=== PATIENT | male | born 1990 | race Caucasian/White ===

== ENCOUNTER 2017-08-10 10:22 | Emergency (ER) | payer MEDICAID ==
[2017-08-10 10:27] VITALS: TEMP 98.4
[2017-08-10] MEDS ORDERED: IBUPROFEN 200 MG TAB PO ONE (10:51)
--- NOTE | 2017-08-10 11:06 | EDPHY ---
H & P Stated Complaint: R ankle injury last night Time Seen by Provider: 08/10/17 11:01 HPI/ROS: HPI: This is a 27-year-old male who presents with Chief Complaint: Right ankle injury Location: Right ankle Quality: Injury Duration: Yesterday afternoon Signs and Symptoms: No bleeding, no radiation, no numbness, no weakness, no tingling, + decreased range of motion, + swelling medial aspect Timing: gradual onset Severity: [id number]-[id number] Context: Patient reports that he was skateboarding yesterday, jumped, fell off a skateboard and landed directly on the heel of his right foot. He is unsure of exactly how he hurt his right ankle but he felt immediate pain but was still able to ambulate. He woke up this morning with his right ankle swelling and increased pain with weight-bearing. Modifying Factors: ice applied Comment: ROS: Constitutional: No fever, no chills, no weight loss Eyes: No blurred vision Respiratory: No shortness of breath, no cough Cardiovascular: No chest pain Gastrointestinal: No nausea, no vomiting no diarrhea Genitourinary: No dysuria Extremities: No myalgias Neurologic: No weakness, no numbness Skin: No rashes Hematologic: No bruising, no bleeding MEDICAL/SURGICAL/SOCIAL HISTORY: Generally healthy. Reports injury to his Achilles several years ago that did not require surgical intervention. Source: Patient Exam Limitations: No limitations - Personal History Current Tetanus/Diphtheria Vaccine: Yes Current Tetanus Diphtheria and Acellular Pertussis (TDAP): Yes - Medical/Surgical History Hx Asthma: No Hx Chronic Respiratory Disease: No Hx Diabetes: No Hx Cardiac Disease: No Hx Renal Disease: No Hx Cirrhosis: No Hx Alcoholism: No Hx HIV/AIDS: No Hx Splenectomy or Spleen Trauma: No Other PMH: pmh- Bipolar. chronic opiate and benzo abuse- w/d seizures - Social History Smoking Status: Never smoked - Physical Exam Exam: CONSTITUTIONAL: Well-appearing adult white male, awake and alert, no obvious distress HEENT: Atraumatic and normocephalic, PERRL, EOMI. Tympanic membranes clear. . Oropharynx clear, no exudate and moist pink mucosa. Airway patent. No lymphadenopathy. No meningismus. Cardiovascular: Normal S1/S2, regular rate, regular rhythm, without murmur rub or gallop. PULMONARY/CHEST: Symmetrical and nontender. Clear to auscultation bilaterally Good air movement. No accessory muscle usage. ABDOMEN: Soft, nondistended, nontender, no rebound, no guarding, no peritoneal signs, no masses or organomegaly. No CVAT. EXTREMITIES: 2/2 pedal pulses, right medial lateral fsyr-[id number] swelling; tenderness to palpation over anterior and posterior aspect of ligaments. Dorsiflexion and plantar flexion intact limited due to pain. Light touch sensation intact. Foot inversion and eversion limited due to pain. NEUROLOGICAL: no focal neuro deficits. GCS 15. Light touch sensation intact. Normal Yi test. SKIN: Warm and dry, no erythema. no rash. Good capillary refill. Constitutional: Initial Vital Signs Temperature (C) 36.9 C 08/10/17 10:25 Heart Rate 90 08/10/17 10:25 Respiratory Rate 16 08/10/17 10:25 Blood Pressure 109/69 08/10/17 10:25 O2 Sat (%) 95 08/10/17 10:25 O2 Delivery Mode Room Air Allergies/Adverse Reactions: Penicillins Allergy (Verified 08/10/17 10:27) Home Medications: Medication Instructions Recorded Alprazolam [Xanax 2mg] 2 mg PO TID 08/07/11 MINOCYCLINE HCL [Minocycline 135 mg PO 02/24/12 mg] clonazePAM [klonoPIN (RX)] 2 mg PO 03/19/12 Promethazine HCl [Phenergan 12.5mg 12.5 mg PO TID PRN #7 tablet 11/30/15 tab] QUEtiapine FUMARATE [SEROquel] 100 mg PO DAILY 11/30/15 Ondansetron Odt [Zofran Odt] 4 mg PO Q4PRN PRN #10 tab 12/10/15 Promethazine HCl [Phenergan] 25 mg PO Q6 #15 tab 12/10/15 Seboxone 12/10/15 Medical Decision Making - Diagnostics Imaging Results: Imaging Impressions Ankle X-Ray 08/10/17 10:29 Impression: Lateral ankle sprain.. Foot X-Ray 08/10/17 10:50 Impression: Normal foot series. ED Course/Re-evaluation: X-rays ordered Patient refused ibuprofen and requested tramadol. Advised that this is not appropriate. Ice applied. X-rays do not show any fractures dislocation Grade 2 ankle sprain; air splint, crutches, weight-bearing as tolerated No signs of neurovascular compromise/tenting of skin/compartment syndrome/ extremities and joints examined above and below area of concern and are neurovascularly intact. Differential Diagnosis: Differential diagnosis includes but is not limited to ankle sprain, fracture, dislocation, nerve injury, tendon injury. - Data Points Medications Given: Discontinued Medications Ibuprofen (Motrin) 800 mg PO EDNOW ONE Stop: 08/10/17 10:52 Last Admin: 08/10/17 11:05 Dose: Not Given Departure - Departure Disposition: Home, Routine, Self-Care Clinical Impression: Moderate right ankle sprain Qualifiers: Encounter type: initial encounter Qualified Code(s): S93.401A - Sprain of unspecified ligament of right ankle, initial encounter Condition: Good Instructions: Ankle Sprain (ED), Ankle Stirrup Splint (ED), RICE Therapy (ED) Additional Instructions: Take ibuprofen 600-800 mg every 6-8 hours with food as needed for pain and inflammation. Apply ice for 30 minutes at a time; 2-3 times per day for the next 1-2 days. Wear splint and use crutches until pain free. Weightbearing as tolerated. Follow up with Orthopedics in 7-10 days symptoms persist or do not improve. The x-rays obtained in the emergency department today demonstrate no evidence of an obvious fracture. Sometimes fractures are not obvious on the initial set of x-rays performed in the ED. For this reason, you should have repeat x-rays performed in 7-10 days if you are having any pain exclude the possibility of an occult fracture. Referrals: NEVAEH PATTERSON MD [Primary Care Provider] - As per Instructions Butch Tovar MD [Medical Doctor] - As per Instructions
[2017-08-10] MEDS ORDERED: traMADol 50 MG TAB PO ONE (11:58)
[2017-08-10 12:09] VITALS: O2SAT 96
[2017-08-10 12:31] VITALS: BP 136/71; PULSE 71; RESP 18
== END 2017-08-10 12:30 | disposition home or self-care (01) ==
DX: S93.401A Sprain of unspecified ligament of right ankle, initial encounter (principal); V00.131A Fall from skateboard, initial encounter; Y99.8 Other external cause status; Y93.51 Activity, roller skating (inline) and skateboarding

== ENCOUNTER 2017-11-07 21:06 | Emergency (ER) | payer MEDICAID ==
[2017-11-07 21:10] VITALS: BP 141/86; PULSE 107; RESP 18; TEMP 98.4; O2SAT 92
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
== END 2017-11-07 23:03 | disposition home or self-care (01) ==
PROC: 0HQ0XZZ Repair Scalp Skin, External Approach (ICD-10-PCS; principal; 2017-11-07)
DX: S01.01XA Laceration without foreign body of scalp, initial encounter (principal); V19.9XXA Pedal cyclist (driver) (passenger) injured in unspecified traffic accident, initial encounter

== ENCOUNTER 2018-08-03 22:04 | Emergency (ER) | payer MEDICAID ==
[2018-08-03 22:11] VITALS: BP 125/64
--- NOTE | 2018-08-03 22:25 | EDPHY ---
H & P Stated Complaint: R arm abscess x3 days Time Seen by Provider: 08/03/18 22:25 HPI/ROS: HPI CHIEF COMPLAINT: Right arm infection HISTORY OF PRESENT ILLNESS: 28-year-old male, history of IV drug use, typically he states he shoots up cocaine intravenously, additionally heroin, presents emergency room stating that he thinks he has an abscess to his right arm where he missed shot. States pain is been there for 24 hr. Some mild redness. No drainage. No fever. Past Medical History: Denies significant medical history Past Surgical History: Denies significant surgical history Social History: History polysubstance abuse. Homeless. IV drug use. IV cocaine. Family History: Noncontributory ROS REVIEW OF SYSTEMS: 10 Systems were reviewed and negative with the exception of the elements mentioned in the history of present illness. Exam Constitutional triage nursing summary reviewed, vital signs reviewed, awake/ alert. Eyes normal conjunctivae and sclera, EOMI, PERRLA. HENT normal inspection, atraumatic, moist mucus membranes, no epistaxis, neck supple/ no meningismus, no raccoon eyes. Respiratory clear to auscultation bilaterally, normal breath sounds, no respiratory distress, no wheezing. Cardiovascular rate normal, regular rhythm, no murmur, no edema, distal pulses normal. Gastrointestinal soft, non-tender, no rebound, no guarding, normal bowel sounds, no distension, no pulsatile mass. Genitourinary no CVA tenderness. Musculoskeletal no midline vertebral tenderness, full range of motion, no calf swelling, no tenderness of extremities, no meningismus, good pulses, neurovascularly intact. Skin right upper extremity: Area 2 cm x 3 cm redness. No fluctuance. No significant induration. No visible abscess. No head. Neurologic awake, alert and oriented x 3, AAOx3, moves all 4 extremities equally, motor intact, sensory intact, CN II-XII intact, normal cerebellar, normal vision, normal speech. Psychiatric normal mood/affect. Heme/Lymph/Immune no lymphadenopathy. Differential Diagnosis: Plan for this patient recommend warm compresses 2 to 3 times a day. 20 min. Recommend Keflex. Additionally I did explain there is a chance this will get worse and more swollen and more painful if he gets bigger and more painful more red he should return emergency room for possible drainage. At this time there is nothing to be drained. Return precautions discussed with him. Also I recommend he stops doing IV drugs. Source: Patient - Personal History Current Tetanus/Diphtheria Vaccine: Yes Tetanus Vaccine Date: 2016 - Medical/Surgical History Hx Asthma: No Hx Chronic Respiratory Disease: No Hx Diabetes: No Hx Cardiac Disease: No Hx Renal Disease: No Hx Cirrhosis: No Hx Alcoholism: No Hx HIV/AIDS: No Hx Splenectomy or Spleen Trauma: No Other PMH: pmh- Bipolar. chronic opiate and benzo abuse- w/d seizures - Social History Smoking Status: Never smoked Constitutional: Initial Vital Signs Temperature (C) 36.8 C 08/03/18 22:08 Heart Rate 85 08/03/18 22:08 Respiratory Rate 16 08/03/18 22:08 Blood Pressure 125/64 H 08/03/18 22:08 O2 Sat (%) 98 08/03/18 22:08 O2 Delivery Mode Room Air Allergies/Adverse Reactions: Penicillins Allergy (Verified 08/10/17 10:27) Home Medications: Medication Instructions Recorded Alprazolam [Xanax 2mg] 2 mg PO TID 08/07/11 MINOCYCLINE HCL [Minocycline 135 mg PO 02/24/12 mg] clonazePAM [klonoPIN (RX)] 2 mg PO 03/19/12 Promethazine HCl [Phenergan 12.5mg 12.5 mg PO TID PRN #7 tablet 11/30/15 tab] QUEtiapine FUMARATE [SEROquel] 100 mg PO DAILY 11/30/15 Ondansetron Odt [Zofran Odt] 4 mg PO Q4PRN PRN #10 tab 12/10/15 Promethazine HCl [Phenergan] 25 mg PO Q6 #15 tab 12/10/15 Seboxone 12/10/15 Cephalexin [Keflex] 500 mg PO Q6H #28 cap 11/07/17 Cephalexin [Keflex] 500 mg PO Q6H #28 cap 08/03/18 Departure - Departure Disposition: Home, Routine, Self-Care Clinical Impression: Cellulitis Qualifiers: Site of cellulitis: extremity Site of cellulitis of extremity: upper extremity Laterality: right Qualified Code(s): L03.113 - Cellulitis of right upper limb Condition: Good Instructions: Cellulitis (ED) Additional Instructions: 1. Recommend warm compresses 2 to 3 times a day. 2. Antibiotics as prescribed 3. Return to the emergency room if there is worsening swelling pain or fever. Referrals: NONE *PRIMARY CARE P,. [Primary Care Provider] - As per Instructions Prescriptions: Cephalexin [Keflex] 500 mg PO Q6H #28 cap
[2018-08-03] MEDS ORDERED: CEPHALEXIN 500MG PREPACK#4 BTL TAKEHOME ONE (22:31)
[2018-08-03] MEDS ORDERED: CEPHALEXIN 500 MG CAP PO ONE (22:31)
== END 2018-08-03 22:41 | disposition home or self-care (01) ==
DX: L03.113 Cellulitis of right upper limb (principal); F14.90 Cocaine use, unspecified, uncomplicated; F11.90 Opioid use, unspecified, uncomplicated; Z88.0 Allergy status to penicillin; Z59.0 Homelessness

== ENCOUNTER 2018-08-14 20:39 | Emergency (ER) | payer MEDICAID ==
[2018-08-14 20:47] VITALS: BP 137/93
[2018-08-14] MEDS ORDERED: SULFAMET/TMP DS PREPACK#2 BTL TAKEHOME ONE (21:24)
--- NOTE | 2018-08-14 21:24 | EDPHY ---
H & P Stated Complaint: Abscess to bilateral arms, on keflex. IVDA Time Seen by Provider: 08/14/18 21:27 HPI/ROS: HPI: This is a 28-year-old male who presents with Chief Complaint: Abscess to bilateral arms, on Keflex. IVDA Location: Bilateral posterior forearm Quality:sores Duration: 2 days Signs and Symptoms: No bleeding, no radiation, no numbness, no weakness, no tingling, no incontinence, no decreased range of motion, no swelling, no pain, no fever, no skin color change Timing: Acute Severity: Mild Context: Patient is IV drug user of cocaine and heroin, presents with concern over 2 small lumps below his skin in his bilateral forearms that he noticed approximately 2 days ago. He denies any drainage, warmth, fever, pain in the area. His last abscess from IV drug use was approximately 1 year ago. He was seen in this emergency room on 08/03/2018 with concerns of abscess formation was not drainable at that time. He is advised to use warm compresses and a prescription for Keflex was provided. He admits that he has not been taking the Keflex as prescribed or applying warm compresses. Patient reports that he takes minocycline for acne vulgaris. Denies LOC/head injury/neck pain/dizziness /nausea/vomiting/amnesia. Modifying Factors: None Comment: ROS: A comprehensive 10 system review of systems is otherwise negative aside from elements mentioned in the history of present illness. MEDICAL/SURGICAL/SOCIAL HISTORY: Medical history: Bipolar, chronic opiate and benzo abuse- w/d seizures Surgical history: Denies Social history: Single CONSTITUTIONAL: Nontoxic-appearing polite and cooperative adult white male, awake and alert, no obvious distress HEENT: Atraumatic and normocephalic. NECK: supple EXTREMITIES: 2/2 pulses, strength 5/5, bilateral forearms approximately 2 inches to the olecranon process sparing the elbow shows subcutaneous nodule x 2 that is slightly mobile upon palpation but no fluctuance, no erythema, no discharge. DIP/PIP/MCP flexion/extension intact with good light touch sensation. no deformities, no clubbing, no cyanosis or edema. NEUROLOGICAL: no focal neuro deficits. GCS 15. Light touch sensation intact. SKIN: Warm and dry, no erythema. Tattoos covering body. no rash. Good capillary refill. Source: Patient Exam Limitations: No limitations - Personal History Current Tetanus Diphtheria and Acellular Pertussis (TDAP): Yes Tetanus Vaccine Date: 2016 - Medical/Surgical History Hx Asthma: No Hx Chronic Respiratory Disease: No Hx Diabetes: No Hx Cardiac Disease: No Hx Renal Disease: No Hx Cirrhosis: No Hx Alcoholism: No Hx HIV/AIDS: No Hx Splenectomy or Spleen Trauma: No Other PMH: pmh- Bipolar. chronic opiate and benzo abuse- w/d seizures - Social History Smoking Status: Never smoked Constitutional: Initial Vital Signs Temperature (C) 36.6 C 08/14/18 20:44 Heart Rate 98 08/14/18 20:44 Respiratory Rate 16 08/14/18 20:44 Blood Pressure 137/93 H 08/14/18 20:44 O2 Sat (%) 98 08/14/18 20:44 O2 Delivery Mode Room Air Allergies/Adverse Reactions: Penicillins Allergy (Verified 08/10/17 10:27) Home Medications: Medication Instructions Recorded Alprazolam [Xanax 2mg] 2 mg PO TID 08/07/11 MINOCYCLINE HCL [Minocycline 135 mg PO 02/24/12 mg] clonazePAM [klonoPIN (RX)] 2 mg PO 03/19/12 QUEtiapine FUMARATE [SEROquel] 100 mg PO DAILY 11/30/15 Promethazine HCl [Phenergan] 25 mg PO Q6 #15 tab 12/10/15 Seboxone 12/10/15 Cephalexin [Keflex] 500 mg PO Q6H #28 cap 11/07/17 Cephalexin [Keflex] 500 mg PO Q6H #28 cap 08/03/18 Sulfamethox/Tmp 800/160 mg 1 tab PO BID #14 tab 08/14/18 [Bactrim Ds] Medical Decision Making ED Course/Re-evaluation: Vital signs reviewed and stable upon arrival. No jovany cellulitis or fluctuance to I and D Advised patient is to be compliant with taking Keflex and I added a prescription for Bactrim Advised warm compresses and He is to return in 3 days for wound check to see if the induration is drainable. No signs of neurovascular compromise/tenting of skin/compartment syndrome/ extremities and joints examined above and below area of concern and are neurovascularly intact. This patient was seen under the supervision of my secondary supervising physician. I evaluated care for this patient independently. Discussed this patient with Dr. Carpenter. Differential Diagnosis: Differential diagnosis includes but is not limited to cellulitis, abscess, MRSA infection, induration, lipoma, phlebitis. Departure - Departure Disposition: Home, Routine, Self-Care Clinical Impression: IVDU (intravenous drug user), Induration of skin Condition: Good Instructions: Abscess (ED), Warm Compress or Soak (ED) Additional Instructions: Take Keflex as previously prescribed. Take Bactrim twice daily x7 days. Do not skip a dose. Take Tylenol 650 mg every 4 hours and/or Ibuprofen 600 mg every 8 hours with food as needed for pain. Apply warm compresses for 30 minutes at a time; 2-3 times per day for the next 1 -2 days. Wound Care Follow-Up: Wound evaluation in [ 3 ] days. There is a charge for this evaluation in the Emergency Department. Referrals: [facility],. [Clinic] - As per Instructions Prescriptions: Sulfamethox/Tmp 800/160 mg [Bactrim Ds] 1 tab PO BID #14 tab
== END 2018-08-14 21:34 | disposition home or self-care (01) ==
DX: R23.4 Changes in skin texture (principal); F11.10 Opioid abuse, uncomplicated; F13.10 Sedative, hypnotic or anxiolytic abuse, uncomplicated